=== PATIENT | male | born 1950 | race Caucasian/White ===

== ENCOUNTER 2023-09-29 14:18 | Outpatient (RCR) | payer BC, SELFPAY | END 2023-09-29 23:59 | disposition home or self-care (01) | LOC: RPT 14:18 | PROVIDERS: ATTENDING PHYSICIAN Family Medicine | DX: R29.898 Other symptoms and signs involving the musculoskeletal system (principal) | CPT/HCPCS: 97110; 97112 ==

== ENCOUNTER 2023-11-04 12:57 | Outpatient (RCR) | payer BC, SELFPAY | END 2023-11-04 23:59 | disposition home or self-care (01) | LOC: RPT 12:57 | PROVIDERS: ATTENDING PHYSICIAN Family Medicine | DX: R29.898 Other symptoms and signs involving the musculoskeletal system (principal); Z73.6 Limitation of activities due to disability | CPT/HCPCS: 97110; 97112 ==

== ENCOUNTER 2023-12-02 13:00 | Outpatient (RCR) | payer BC, SELFPAY | END 2023-12-02 23:59 | disposition home or self-care (01) | LOC: RPT 13:00 | PROVIDERS: ATTENDING PHYSICIAN Family Medicine | DX: R29.898 Other symptoms and signs involving the musculoskeletal system (principal); Z73.6 Limitation of activities due to disability; R26.2 Difficulty in walking, not elsewhere classified; M62.81 Muscle weakness (generalized); M43.22 Fusion of spine, cervical region; Z91.81 History of falling | CPT/HCPCS: 97110; 97112 ==

== ENCOUNTER 2023-12-10 12:02 | Outpatient (RCR) | payer MEDICARE, OTHER, SELFPAY | END 2023-12-10 23:59 | disposition home or self-care (01) | LOC: RPT 12:02 | PROVIDERS: ATTENDING PHYSICIAN Family Medicine | DX: R29.898 Other symptoms and signs involving the musculoskeletal system (principal); Z73.6 Limitation of activities due to disability; R26.2 Difficulty in walking, not elsewhere classified; M62.81 Muscle weakness (generalized); R26.89 Other abnormalities of gait and mobility | CPT/HCPCS: 97110; 97112; 97161 ==

== ENCOUNTER 2024-03-31 06:19 | Day surgery (SDC) | payer MEDICARE, OTHER, SELFPAY ==
[2024-03-31 07:20] LABS: Glucose - Point of Care 133 mg/dl (70-99)
[2024-03-31 07:27] VITALS: BMI 30.7
[2024-03-31 07:28] VITALS: BP 140/73; BMI 30.7
[2024-03-31 09:06] VITALS: BP 98/63
[2024-03-31 09:15] VITALS: BP 122/59
[2024-03-31 09:26] VITALS: BP 126/67
== END 2024-03-31 09:35 | disposition home or self-care (01) ==
LOC: GI 06:19
PROVIDERS: ATTENDING PHYSICIAN Internal Medicine Gastroenterology
DX: Z12.11 Encounter for screening for malignant neoplasm of colon (principal); D12.0 Benign neoplasm of cecum; D12.2 Benign neoplasm of ascending colon; D12.3 Benign neoplasm of transverse colon; K64.0 First degree hemorrhoids; Z86.010 Personal history of colon polyps; Z98.890 Other specified postprocedural states
CPT/HCPCS: 45385; 45380; 88305; 82962

== ENCOUNTER → 2024-05-23 11:55 | Outpatient (REF) | payer MEDICARE, OTHER, SELFPAY | LOC: HWRAD 11:55 | PROVIDERS: ATTENDING PHYSICIAN Otolaryngology; FAMILY PHYSICIAN Student in an Organized Health Care Education/Training Program | DX: J38.01 Paralysis of vocal cords and larynx, unilateral (principal) | CPT/HCPCS: 70490 ==

== ENCOUNTER 2024-06-03 10:44 | Outpatient (RCR) | payer MEDICARE, OTHER, SELFPAY | END 2024-06-03 23:59 | disposition home or self-care (01) | LOC: RPT 10:44 | PROVIDERS: ATTENDING PHYSICIAN Family Medicine | DX: R29.898 Other symptoms and signs involving the musculoskeletal system (principal); Z73.6 Limitation of activities due to disability | CPT/HCPCS: 97110; 97112; 97161 ==

== ENCOUNTER 2024-06-24 12:16 | Outpatient (RCR) | payer MEDICARE, OTHER, SELFPAY | END 2024-06-30 23:59 | disposition home or self-care (01) | LOC: RPT 12:16 | PROVIDERS: ATTENDING PHYSICIAN Family Medicine | DX: R29.898 Other symptoms and signs involving the musculoskeletal system (principal); R26.2 Difficulty in walking, not elsewhere classified; M62.81 Muscle weakness (generalized); Z73.6 Limitation of activities due to disability | CPT/HCPCS: 97110; 97112 ==

== ENCOUNTER 2024-07-20 13:55 | Outpatient (RCR) | payer MEDICARE, OTHER, SELFPAY | END 2024-07-20 23:59 | disposition home or self-care (01) | LOC: RPT 13:55 | PROVIDERS: ATTENDING PHYSICIAN Family Medicine | DX: R29.898 Other symptoms and signs involving the musculoskeletal system (principal); Z73.6 Limitation of activities due to disability; R26.2 Difficulty in walking, not elsewhere classified; M62.81 Muscle weakness (generalized); R53.83 Other fatigue | CPT/HCPCS: 97110; 97112 ==

== ENCOUNTER 2024-08-30 12:52 | Outpatient (RCR) | payer MEDICARE, OTHER, SELFPAY | END 2024-08-30 23:59 | disposition home or self-care (01) | LOC: RPT 12:52 | PROVIDERS: ATTENDING PHYSICIAN Family Medicine | DX: R29.898 Other symptoms and signs involving the musculoskeletal system (principal); Z73.6 Limitation of activities due to disability; R26.2 Difficulty in walking, not elsewhere classified; M62.81 Muscle weakness (generalized) | CPT/HCPCS: 97110; 97112 ==

== ENCOUNTER 2024-09-29 12:54 | Outpatient (RCR) | payer MEDICARE, OTHER, SELFPAY | END 2024-09-29 23:59 | disposition home or self-care (01) | LOC: RPT 12:54 | PROVIDERS: ATTENDING PHYSICIAN Family Medicine | DX: R29.898 Other symptoms and signs involving the musculoskeletal system (principal); Z73.6 Limitation of activities due to disability; R26.2 Difficulty in walking, not elsewhere classified; M62.81 Muscle weakness (generalized) | CPT/HCPCS: 97110; 97112 ==

== ENCOUNTER 2024-11-03 12:04 | Outpatient (RCR) | payer MEDICARE, OTHER, SELFPAY | END 2024-11-03 23:59 | disposition home or self-care (01) | LOC: RPT 12:04 | PROVIDERS: ATTENDING PHYSICIAN Family Medicine | DX: R29.898 Other symptoms and signs involving the musculoskeletal system (principal); Z73.6 Limitation of activities due to disability; R26.2 Difficulty in walking, not elsewhere classified; M62.81 Muscle weakness (generalized) | CPT/HCPCS: 97110; 97112 ==

== ENCOUNTER 2024-11-10 11:56 | Outpatient (RCR) | payer MEDICARE, OTHER, SELFPAY | END 2024-11-18 07:17 | disposition home or self-care (01) | LOC: RPT 11:56 | PROVIDERS: ATTENDING PHYSICIAN Family Medicine | DX: R29.898 Other symptoms and signs involving the musculoskeletal system (principal); Z73.6 Limitation of activities due to disability; R26.2 Difficulty in walking, not elsewhere classified; M62.81 Muscle weakness (generalized); M54.50 Low back pain, unspecified | CPT/HCPCS: 97110; 97112 ==

== ENCOUNTER → 2025-02-16 10:46 | Outpatient (REF) | payer MEDICARE, OTHER, SELFPAY | LOC: DHSLP 10:46 | PROVIDERS: ATTENDING PHYSICIAN Internal Medicine Critical Care Medicine; FAMILY PHYSICIAN Student in an Organized Health Care Education/Training Program | DX: G47.33 Obstructive sleep apnea (adult) (pediatric) (principal); G47.19 Other hypersomnia; R06.83 Snoring | CPT/HCPCS: 95800 ==

== ENCOUNTER → 2025-07-21 15:51 | Outpatient (REF) | payer MEDICARE, OTHER, SELFPAY | LOC: RAD 15:51 | PROVIDERS: ATTENDING PHYSICIAN Student in an Organized Health Care Education/Training Program | DX: R05.3 Chronic cough (principal) | CPT/HCPCS: 71046 ==

== ENCOUNTER 2025-09-01 06:58 | Outpatient (RCR) | payer MEDICARE, OTHER, SELFPAY | END 2025-09-01 23:59 | disposition home or self-care (01) | LOC: RPT 06:58 | PROVIDERS: ATTENDING PHYSICIAN Student in an Organized Health Care Education/Training Program | DX: R29.898 Other symptoms and signs involving the musculoskeletal system (principal); R26.2 Difficulty in walking, not elsewhere classified; Z73.6 Limitation of activities due to disability; M62.81 Muscle weakness (generalized); M54.50 Low back pain, unspecified | CPT/HCPCS: 97110; 97112; 97162 ==

== ENCOUNTER 2025-10-02 07:27 | Outpatient (RCR) | payer MEDICARE, OTHER, SELFPAY | END 2025-10-02 23:59 | disposition home or self-care (01) | LOC: RPT 07:27 | PROVIDERS: ATTENDING PHYSICIAN Student in an Organized Health Care Education/Training Program | DX: R29.898 Other symptoms and signs involving the musculoskeletal system (principal); R26.2 Difficulty in walking, not elsewhere classified; Z73.6 Limitation of activities due to disability; M62.81 Muscle weakness (generalized); M54.50 Low back pain, unspecified | CPT/HCPCS: 97110; 97112 ==